=== PATIENT | male | born 1970 | race Caucasian/White ===

== ENCOUNTER 2024-06-11 02:14 | Inpatient (IN) | payer MEDICARE, OTHER ==
[~2024-06-11] VITALS: Ht 167.6 cm; Wt 131.4 kg
[2024-06-11] MEDS: IPRATROPIUM 0.5MG/ALBUTEROL 2.5MG INH SOL UD 3ML (DUONEB) NEB SCH ×2 (02:38→08:10)
[2024-06-11 02:39] LABS: ABG BASE EXCESS -4.2 (-2.0-2.0); ABG HCO3 23.6 MMOL/L (22.0-26.0); ABG O2 SATURATION 93.1 % (95.0-99.0); ABG PARTIAL PRESSURE CO2 53.4 mmHg (35.0-45.0); ABG PARTIAL PRESSURE O2 71.5 mmHg (75.0-100.0); ABG STANDARD HCO3 20.9 MMOL/L. (22.0-26.0); ABG TOTAL CO2 25.2 MMOL/L (22.0-29.0); ABG pH (ARTERIAL) 7.263 UNITS (7.350-7.450)
[2024-06-11] MEDS: methylPREDNISolone 125MG 2ML VIAL IV ONE (02:39)
[2024-06-11 02:42] LABS: BASO # 0.1 10^3/uL (0.0-0.2); BASO % 0.8 % (0.0-1.0); EOS # 0.8 10^3/uL (0.0-0.5); EOS % 5.7 % (0.0-3.0); HEMATOCRIT 50.1 % (42.0-52.0); HEMOGLOBIN 16.5 g/dl (13.5-17.5); LYMPH # 4.3 10^3/uL (1.5-5.0); MEAN CORPUSCULAR HEMOGLOBIN 32.6 pg (27.0-33.0); MEAN CORPUSCULAR HGB CONC 32.9 g/dl (32.0-36.5); MONO # 1.4 10^3/uL (0.0-0.8); MONO % 9.9 % (2.0-8.0); NEUTROPHILS # 7.5 10^3/uL (1.5-8.5); NEUTROPHILS % 52.6 % (36.0-66.0); PLATELET COUNT, AUTOMATED 244 10^3/uL (150-450); RED BLOOD COUNT 5.06 10^6/uL (4.30-6.10); WHITE BLOOD COUNT 14.3 10^3/uL (4.0-10.0)
[2024-06-11 03:13] LABS: ALBUMIN 4.1 G/DL (3.2-5.2); ALKALINE PHOSPHATASE 104 U/L (46-116); ALT/SGPT 24 U/L (7.0-40); AST/SGOT 11 U/L (<34); BILIRUBIN,DIRECT 0.1 MG/DL (<0.4); BILIRUBIN,TOTAL 0.3 MG/DL (0.3-1.2); BLOOD UREA NITROGEN 11 MG/DL (9-23); CALCIUM LEVEL 9.2 MG/DL (8.5-10.1); CARBON DIOXIDE LEVEL 27 MMOL/L (20-31); CHLORIDE LEVEL 109 MMOL/L (98-107); CPK CREATINE PHOSPHOKINASE 258 U/L (46-171); CREATININE FOR GFR 0.85 MG/DL (0.70-1.30); GLOMERULAR FILTRATION RATE > 60.0 (>56); GLUCOSE, FASTING 109 MG/DL (60-100); POTASSIUM SERUM 4.3 MMOL/L (3.5-5.1); SODIUM LEVEL 140 MMOL/L (136-145); TOTAL PROTEIN 7.2 G/DL (5.7-8.2)
[2024-06-11 03:17] LABS: CK-MB VALUE MASS 2.3 NG/ML (<3.6); ETHYL ALCOHOL (ETHANOL) 0.025 % (0.000-0.010); MB/CK RELATIVE INDEX 0.89 (< OR =4)
[2024-06-11 04:45] LABS: MB/CK RELATIVE INDEX 0.87 (< OR =4)
[2024-06-11] MEDS: cefTRIAXone SOD 2 GM in D5W MINI-BAG PLUS 50 ML IV ONE (05:16)
[2024-06-11] MEDS ORDERED: COMBIVENT RESPIMAT 100-20MCG INHALER 4GM INH PRN (05:25)
[2024-06-11] MEDS ORDERED: GLUCAGON INJ 1MG VIAL SC PRN (05:45)
[2024-06-11] MEDS ORDERED: DEXTROSE 50% 50ML SYRINGE IV PRN (05:45)
[2024-06-11] MEDS ORDERED: GLUCOSE 4 GM CHEW PO PRN (05:45)
[2024-06-11] MEDS: AZITHROMYCIN INJ 500 MG, VIAL MATE ADAPTER 1 EACH in NS 250 ML IV SCH (05:50)
[2024-06-11 05:51] LABS: ABG BASE EXCESS -2.6 (-2.0-2.0); ABG HCO3 24.7 MMOL/L (22.0-26.0); ABG O2 SATURATION 95.2 % (95.0-99.0); ABG PARTIAL PRESSURE O2 78.7 mmHg (75.0-100.0); ABG STANDARD HCO3 22.3 MMOL/L. (22.0-26.0); ABG TOTAL CO2 26.3 MMOL/L (22.0-29.0); ABG pH (ARTERIAL) 7.295 UNITS (7.350-7.450)
[2024-06-11] MEDS: INSULIN LISPRO (NovoLOG) PER UNIT SC SCH (05:58)
[2024-06-11] MEDS: SYMBICORT 160/4.5MCG INHALER 6GM INH SCH (08:00)
[2024-06-11] MEDS: TIOTROPIUM INHALER/CAPSULE (SPIRIVA) INH SCH (08:10)
[2024-06-11] MEDS: VALPROATE SOD INJ 750 MG in D5W 50 ML IV SCH (09:00)
[2024-06-11] MEDS ORDERED: TOPI-21 PO (09:11)
[2024-06-11] MEDS ORDERED: GABA-1490 PO (09:11)
[2024-06-11] MEDS ORDERED: METO1TAB7 PO (09:11)
[2024-06-11] MEDS ORDERED: LOSA25TA13 PO (09:11)
[2024-06-11] MEDS ORDERED: FURO20TA2 PO (09:11)
[2024-06-11] MEDS ORDERED: TREL1AER INH (09:11)
[2024-06-11] MEDS ORDERED: IPRA0.00 INH (09:11)
[2024-06-11] MEDS ORDERED: COMBAER6 INH (09:11)
[2024-06-11] MEDS ORDERED: ROSU10TA61 PO (09:11)
[2024-06-11] MEDS ORDERED: OMEG-28 PO (09:11)
[2024-06-11] MEDS ORDERED: ROFL500T PO (09:11)
[2024-06-11] MEDS ORDERED: CYCL-707 PO (09:11)
[2024-06-11] MEDS ORDERED: METF850T4 PO (09:11)
[2024-06-11] MEDS ORDERED: DIVA500T94 PO (09:11)
[2024-06-11] MEDS ORDERED: ALBU8.5H INH (09:11)
[2024-06-11] MEDS ORDERED: HOME MED LIST COMPLETE! XX SCH (09:15)
[2024-06-11 09:40] VITALS: BP 133/66; TEMP 97.2; O2SAT 94
[2024-06-11] MEDS ORDERED: methylPREDNISolone 125MG 2ML VIAL IV SCH (11:00)
[2024-06-11] MEDS: ENOXAPARIN 40MG/0.4ML SYRINGE (J1650 PER 10MG) SC SCH (11:09)
[2024-06-11] MEDS: methylPREDNISolone 125MG 2ML VIAL IV SCH (11:09)
[2024-06-11 11:41] VITALS: BP 147/70; TEMP 97.2; O2SAT 93
[2024-06-11 13:19] LABS: PROCALCITONIN 0.09 ng/ml
[2024-06-11 15:49] VITALS: BP 163/71; TEMP 97.4; O2SAT 97
[2024-06-11] MEDS: ALBUTEROL 90 MCG/ACT 8GM HFA INHALER INH PRN (17:55)
[2024-06-11 19:29] VITALS: O2SAT 95
[2024-06-11 20:00] VITALS: BP 153/70; TEMP 98; O2SAT 93
[2024-06-11 20:35] LABS: VENOUS HCO3 25.6 MMOL/L (23.0-27.0); VENOUS O2 SATURATION 76.8 % (60.0-80.0); VENOUS PARTIAL PRESSURE CO2 59.9 mmHg (38.0-50.0); VENOUS PARTIAL PRESSURE O2 42.6 mmHg (30.0-50.0); VENOUS PH 7.248 UNITS (7.330-7.430); VENOUS STANDARD HCO3 21.4 MMOL/L; VENOUS TOTAL CO2 27.4 MMOL/L (24.0-28.0)
[2024-06-11] MEDS: guaiFENesin DM LIQ 10ML UD PO PRN (20:46)
[2024-06-11 23:24] VITALS: BP 122/75; TEMP 98; O2SAT 97
[2024-06-11] MEDS: guaiFENesin/CODEINE SYRUP 5 ML UDC PO SCH (23:44)
[2024-06-12 04:00] VITALS: BP 144/69; TEMP 98.1; O2SAT 96
[2024-06-12] MEDS: cefTRIAXone SOD 1 GM in D5W MINI-BAG PLUS 50 ML IV SCH (05:12)
[2024-06-12 05:33] LABS: HEMATOCRIT 45.6 % (42.0-52.0); MEAN CORPUSCULAR HEMOGLOBIN 32.3 pg (27.0-33.0); MEAN CORPUSCULAR HGB CONC 32.9 g/dl (32.0-36.5); MEAN CORPUSCULAR VOLUME 98.1 fl (80.0-96.0); PLATELET COUNT, AUTOMATED 218 10^3/uL (150-450); RED BLOOD COUNT 4.65 10^6/uL (4.30-6.10); WHITE BLOOD COUNT 11.9 10^3/uL (4.0-10.0)
[2024-06-12] MEDS ORDERED: guaiFENesin/CODEINE SYRUP 5 ML UDC PO PRN (06:00)
[2024-06-12 06:05] LABS: ALBUMIN 3.6 G/DL (3.2-5.2); ALKALINE PHOSPHATASE 93 U/L (46-116); ALT/SGPT 21 U/L (7.0-40); AST/SGOT < 8 U/L (<34); BILIRUBIN,TOTAL 0.2 MG/DL (0.3-1.2); BLOOD UREA NITROGEN 16 MG/DL (9-23); CALCIUM LEVEL 9.9 MG/DL (8.5-10.1); CARBON DIOXIDE LEVEL 27 MMOL/L (20-31); CHLORIDE LEVEL 108 MMOL/L (98-107); GLOMERULAR FILTRATION RATE > 60.0 (>56); GLUCOSE, FASTING 174 MG/DL (60-100); POTASSIUM SERUM 4.5 MMOL/L (3.5-5.1); SODIUM LEVEL 140 MMOL/L (136-145); TOTAL PROTEIN 6.6 G/DL (5.7-8.2)
[2024-06-12 07:15] VITALS: O2SAT 95
[2024-06-12 07:44] VITALS: BP 144/73; TEMP 97.7; O2SAT 92
[2024-06-12] MEDS: methylPREDNISolone 125MG 2ML VIAL IV SCH (07:57)
[2024-06-12] MEDS: INSULIN LISPRO (NovoLOG) PER UNIT SC SCH (07:57)
[2024-06-12] MEDS ORDERED: LOSARTAN 25 MG TAB PO SCH (09:00)
[2024-06-12] MEDS ORDERED: FUROSEMIDE 40 MG TAB PO SCH (09:00)
[2024-06-12] MEDS ORDERED: METOPROLOL SUCC (TopROL XL) 50MG **XL** TAB PO SCH (09:00)
[2024-06-12] MEDS: DIVALPROEX 250MG TAB PO SCH (09:57)
[2024-06-12] MEDS: FUROSEMIDE 40 MG TAB PO SCH (09:57)
[2024-06-12] MEDS: METOPROLOL SUCC (TopROL XL) 50MG **XL** TAB PO SCH (09:58)
[2024-06-12] MEDS: LOSARTAN 25 MG TAB PO SCH (09:58)
[2024-06-12] MEDS ORDERED: PRED50TA PO (10:55)
[2024-06-12] MEDS ORDERED: AZIT500T5 PO (10:55)
[2024-06-12] MEDS ORDERED: CEFD1CAP9 PO (10:55)
[2024-06-12 11:55] VITALS: BP 157/77; TEMP 97.7; O2SAT 90
[2024-06-12] MEDS ORDERED: INSULIN LISPRO (NovoLOG) PER UNIT SC SCH (21:00)
[2024-06-13] MEDS ORDERED: LOSARTAN 25 MG TAB PO SCH (09:00)
[2024-06-13] MEDS ORDERED: METOPROLOL SUCC (TopROL XL) 50MG **XL** TAB PO SCH (09:00)
[2025-06-11] MEDS ORDERED: METOPROLOL SUCC (TopROL XL) 50MG **XL** TAB PO SCH (09:00)
[2025-06-11] MEDS ORDERED: FUROSEMIDE 40 MG TAB PO SCH (09:00)
[2025-06-11] MEDS ORDERED: LOSARTAN 25 MG TAB PO SCH (09:00)
== END 2024-06-12 13:25 | disposition home or self-care (01) | DRG 189 ==
LOC: M ED 02:14 → M ED INP 05:21 → M PCU 09:38
PROVIDERS: ADMIT Student in an Organized Health Care Education/Training Program; ATTEND Internal Medicine
DX: J96.21 Acute and chronic respiratory failure with hypoxia (principal); J12.9 Viral pneumonia, unspecified; J44.0 Chronic obstructive pulmonary disease with (acute) lower respiratory infection; E66.2 Morbid (severe) obesity with alveolar hypoventilation; J44.1 Chronic obstructive pulmonary disease with (acute) exacerbation; Z68.42 Body mass index [BMI] 45.0-49.9, adult; E11.40 Type 2 diabetes mellitus with diabetic neuropathy, unspecified; R56.9 Unspecified convulsions; J96.22 Acute and chronic respiratory failure with hypercapnia; F17.200 Nicotine dependence, unspecified, uncomplicated; G43.909 Migraine, unspecified, not intractable, without status migrainosus; I10 Essential (primary) hypertension; F10.129 Alcohol abuse with intoxication, unspecified; Z88.0 Allergy status to penicillin; Z79.84 Long term (current) use of oral hypoglycemic drugs; Z79.899 Other long term (current) drug therapy